=== PATIENT | male | born 1960 | race Caucasian/White ===

== ENCOUNTER → 2018-01-14 | Outpatient (CLI) | payer OTHER ==
[~2018-01-14] MED LIST: ALDACTONE 25MG25 MG PO; ASPIR-LOW81 MG PO; COZAAR 25MG25 MG/TAB PO; DOXAZOCIN; FLOMAX 0.40.4 MG/CAP PO; NORVASC10 MG PO; PERCOCET 325 MG1 TA2 PO
== END ==
LOC: COL.VAS 09:26
DX: I10 Essential (primary) hypertension (principal)

== ENCOUNTER → 2018-01-27 | Outpatient (CLI) | payer OTHER | LOC: COL.RAD 10:39 | DX: I97.3 Postprocedural hypertension (principal) | CPT/HCPCS: A9585; C8902 ==

== ENCOUNTER 2018-04-29 07:34 | Day surgery (SDC) | payer OTHER ==
[~2018-04-29] VITALS: Ht 177.8 cm; Wt 71.9 kg
[2018-04-29] MEDS ORDERED: NORVASC 5MG5 MG/TAB PO (07:50)
[2018-04-29] MEDS ORDERED: COZAAR100 MG PO (07:51)
[2018-04-29 07:52] VITALS: BP 138/97; PULSE 82; TEMP 97.4
[2018-04-29 09:25] VITALS: BP 140/96; PULSE 89; TEMP 97.7
[2018-04-29 09:40] VITALS: BP 146/102; PULSE 92
[2018-04-29 09:55] VITALS: BP 144/95; PULSE 98
[2018-04-29 10:10] VITALS: BP 142/105; PULSE 79
== END 2018-04-29 10:20 | disposition home or self-care (01) ==
LOC: SDCO 07:34
DX: Z12.11 Encounter for screening for malignant neoplasm of colon (principal); D12.0 Benign neoplasm of cecum; D12.4 Benign neoplasm of descending colon; K64.0 First degree hemorrhoids; I10 Essential (primary) hypertension; N40.0 Benign prostatic hyperplasia without lower urinary tract symptoms; Z87.442 Personal history of urinary calculi; Z79.82 Long term (current) use of aspirin; Z79.899 Other long term (current) drug therapy; K57.30 Diverticulosis of large intestine without perforation or abscess without bleeding
CPT/HCPCS: J2250; J3010; J7030

== ENCOUNTER 2020-11-08 15:14 | Emergency (ER) | payer OTHER ==
[~2020-11-08] VITALS: Ht 177.8 cm; Wt 75.0 kg
[~2020-11-08 15:14] MED LIST changes: +COZAAR100 MG PO; +NORVASC 5MG5 MG/TAB PO
[2020-11-08 15:21] VITALS: TEMP 97.6
[2020-11-08 15:55] LABS: BASO # 0.1 (0.0-0.2); BASO % 0.8 % (0.0-2.0); EOS # 0.2 (0.0-0.7); EOS % 2.6 % (0-4.0); GRAN # 4.4 (1.4-6.5); GRAN % 66.5 % (42.2-75.2); HEMATOCRIT 43.2 % (42.0-52.0); HEMOGLOBIN 14.7 g/dl (13.5-18.0); LYMPH # 1.3 (1.2-3.4); LYMPH % 20.2 % (20.0-51.0); MEAN CELL VOLUME 85 fl (80.0-100.0); MEAN CORPUSCULAR HEMOGLOBIN 29 pg (27.0-31.0); MEAN CORPUSCULAR HGB CONC 34 g/dl (33.0-37.0); MEAN PLATELET VOLUME 10.2 fl (7.4-10.4); MONO # 0.6 (0.1-0.6); MONO % 9.4 % (1.7-9.3); PLATELET COUNT 200 K/mm3 (130-400); RED BLOOD COUNT 5.11 M/mm3 (4.20-5.60); REDCELL DISTRIBUTION WIDTH-CV 13.2 % (11.5-14.5)
[2020-11-08 16:07] LABS: ALBUMIN 3.9 gm/dL (3.5-5.0); BILIRUBIN,TOTAL 0.5 mg/dL (0.0-1.0); CREATININE, serum 1.09 (0.66-1.25); POTASSIUM 3.9 mmol/L (3.4-5.0); TOTAL PROTEIN 6.9 gm/dL (6.4-8.2)
[2020-11-08 16:18] LABS: TROPONIN-I 0.025 ng/mL (0.000-0.035)
[2020-11-08] MEDS ORDERED: PLAVIX 75MG TAB75 MG PO (19:20)
[2020-11-08] MEDS ORDERED: HCTZ12.5TAB PO (19:20)
[2020-11-08 19:26] VITALS: BP 161/97; PULSE 55
[2021-02-10] MEDS ORDERED: ELIQUIS 5MG PO (19:06)
[2021-02-10] MEDS ORDERED: TYLENOL 325MG325 MG PO (19:07)
[2021-02-10] MEDS ORDERED: ZYRTEC 10MG10 MG PO (19:08)
[2021-02-10] MEDS ORDERED: CARDIZEM120 MG PO (19:08)
[2021-02-10] MEDS ORDERED: LOPRESSOR 225 MG/TAB PO (19:09)
[2021-02-10] MEDS ORDERED: SENNA-LAX8.6 MG PO (19:10)
[2021-02-10] MEDS ORDERED: PERCOCET 325 MG1 TA2 PO (19:10)
[2021-02-10] MEDS ORDERED: ZINC SULFATE 1566 MG PO (19:11)
[2021-05-01] MEDS ORDERED: COUMADIN 1MG1 MG/TAB PO (13:55)
[2021-05-01] MEDS ORDERED: LIPITOR 80MG80 MG PO (13:56)
[2021-05-01] MEDS ORDERED: ASPIRIN E.C. 8181 MG PO (13:58)
== END 2020-11-08 19:37 | disposition home or self-care (01) ==
LOC: COL.ER 15:14
PROVIDERS: Nurse Practitioner Primary Care
DX: G45.9 Transient cerebral ischemic attack, unspecified (principal); I10 Essential (primary) hypertension; N40.0 Benign prostatic hyperplasia without lower urinary tract symptoms; Z79.899 Other long term (current) drug therapy; Z79.82 Long term (current) use of aspirin
CPT/HCPCS: Q9967

== ENCOUNTER → 2020-12-02 | Outpatient (CLI) | payer OTHER ==
[~2020-12-02] MED LIST changes: +ASPIRIN E.C. 8181 MG PO; +CARDIZEM120 MG PO; +COUMADIN 1MG1 MG/TAB PO; +ELIQUIS 5MG PO; +HCTZ12.5TAB PO; +LIPITOR 80MG80 MG PO; +LOPRESSOR 225 MG/TAB PO; +MICARDIS40 MG PO; +NITRO-DUR0.4 MG/PAT TD; +PLAVIX 75MG TAB75 MG PO; +SENNA-LAX8.6 MG PO; +TYLENOL 325MG325 MG PO; +VERELAN360 MG PO; +ZEBETA10 MG PO; +ZINC SULFATE 1566 MG PO; +ZYRTEC 10MG10 MG PO
== END ==
LOC: COL.RAD 08:40
DX: G45.9 Transient cerebral ischemic attack, unspecified (principal)
CPT/HCPCS: A9585

== ENCOUNTER 2021-01-16 09:47 | Day surgery (SDC) | payer OTHER ==
[~2021-01-16] VITALS: Ht 177.8 cm; Wt 70.5 kg
[2021-01-16] VITALS (11 sets, daily range): BP systolic 133–151; BP diastolic 78–90; PULSE 45–62; TEMP 98
[~2021-01-16 09:47] MED LIST changes: -ASPIRIN E.C. 8181 MG PO; -CARDIZEM120 MG PO; -COUMADIN 1MG1 MG/TAB PO; -ELIQUIS 5MG PO; -LIPITOR 80MG80 MG PO; -LOPRESSOR 225 MG/TAB PO; -MICARDIS40 MG PO; -NITRO-DUR0.4 MG/PAT TD; -SENNA-LAX8.6 MG PO; -TYLENOL 325MG325 MG PO; -VERELAN360 MG PO; -ZEBETA10 MG PO; -ZINC SULFATE 1566 MG PO; -ZYRTEC 10MG10 MG PO
[2021-01-16] MEDS ORDERED: ASPIRIN E.C. 8181 MG PO (10:22)
[2021-01-16] MEDS ORDERED: ZEBETA10 MG PO (10:24)
[2021-01-16] MEDS ORDERED: FLOMAX 0.40.4 MG/CAP PO (10:32)
[2021-01-16] MEDS ORDERED: VERELAN360 MG PO (10:33)
[2021-01-16] MEDS ORDERED: MICARDIS40 MG PO (10:33)
[2021-01-16] MEDS ORDERED: PLAVIX 75MG TAB75 MG PO (10:34)
[2021-01-16 10:46] LABS: HEMATOCRIT 42.9 % (42.0-52.0); HEMOGLOBIN 14.3 g/dl (13.5-18.0); MEAN CELL VOLUME 87 fl (80.0-100.0); MEAN CORPUSCULAR HEMOGLOBIN 29 pg (27.0-31.0); MEAN CORPUSCULAR HGB CONC 33 g/dl (33.0-37.0); MEAN PLATELET VOLUME 9.5 fl (7.4-10.4); PLATELET COUNT 221 K/mm3 (130-400); RED BLOOD COUNT 4.92 M/mm3 (4.20-5.60); REDCELL DISTRIBUTION WIDTH-CV 12.8 % (11.5-14.5)
[2021-01-16 10:54] LABS: INR 1.1 (0.8-3.0); PROTHROMBIN TIME 11.8 SECONDS (9.7-12.8)
[2021-01-16 10:56] LABS: PARTIAL THROMBOPLASTIN TIME 31.6 SECONDS (26.0-37.0)
[2021-01-16 11:00] LABS: CALCIUM 9.2 mg/dL (8.4-10.2); CREATININE, serum 1.21 (0.66-1.25); POTASSIUM 4.6 mmol/L (3.4-5.0)
--- NOTE | 2021-01-16 12:45 | NUR ---
Report from Danna LIU. Transferred from [facility] by bed. Dr. Moran in to talk to pt about need to ship him to [place] from [facility] surgery. Right Tband with 16 cc air CD&I, good pulses and cap refill < 3 secs.
--- NOTE | 2021-01-16 15:56 | NUR ---
16 CC air released from right Tband and dressing applied. INT discontinued intact. Ambulates to bathroom with steady gait and denies pain
[2021-01-16] MEDS ORDERED: LIPITOR 80MG80 MG PO (16:04)
[2021-01-16] MEDS ORDERED: NITRO-DUR0.4 MG/PAT TD (16:04)
--- NOTE | 2021-01-16 16:20 | NUR ---
DC instructions reviewed with pt and . Both express understanding. Pt assisted out by wheelchair to 's car. INT was previously DC'd by NOE Gurrola. Rt radial puncture site dressed with bandaid and coban wrap, also placed by NOE Gurrola.
[2021-02-10] MEDS ORDERED: ELIQUIS 5MG PO (19:06)
[2021-02-10] MEDS ORDERED: TYLENOL 325MG325 MG PO (19:07)
[2021-02-10] MEDS ORDERED: CARDIZEM120 MG PO (19:08)
[2021-02-10] MEDS ORDERED: ZYRTEC 10MG10 MG PO (19:08)
[2021-02-10] MEDS ORDERED: LOPRESSOR 225 MG/TAB PO (19:09)
[2021-02-10] MEDS ORDERED: SENNA-LAX8.6 MG PO (19:10)
[2021-02-10] MEDS ORDERED: PERCOCET 325 MG1 TA2 PO (19:10)
[2021-02-10] MEDS ORDERED: ZINC SULFATE 1566 MG PO (19:11)
[2021-05-01] MEDS ORDERED: COUMADIN 1MG1 MG/TAB PO (13:55)
[2021-05-01] MEDS ORDERED: LIPITOR 80MG80 MG PO (13:56)
[2021-05-01] MEDS ORDERED: ASPIRIN E.C. 8181 MG PO (13:58)
== END 2021-01-16 16:20 ==
LOC: COL.CAR 09:47
PROVIDERS: Internal Medicine Cardiovascular Disease
DX: I25.110 Atherosclerotic heart disease of native coronary artery with unstable angina pectoris (principal); I25.82 Chronic total occlusion of coronary artery; I10 Essential (primary) hypertension; Z20.822 Contact with and (suspected) exposure to COVID-19; Z86.73 Personal history of transient ischemic attack (TIA), and cerebral infarction without residual deficits; Z79.82 Long term (current) use of aspirin; Z79.02 Long term (current) use of antithrombotics/antiplatelets; Z79.899 Other long term (current) drug therapy; Z82.3 Family history of stroke
CPT/HCPCS: C1769; J1200; J1644; J2250; J2930; J3010; Q9967

== ENCOUNTER 2021-04-12 16:13 | Outpatient (RCR) | payer OTHER ==
[~2021-04-12 16:13] MED LIST changes: +ASPIRIN E.C. 8181 MG PO; +CARDIZEM120 MG PO; +ELIQUIS 5MG PO; +LIPITOR 80MG80 MG PO; +LOPRESSOR 225 MG/TAB PO; +MICARDIS40 MG PO; +NITRO-DUR0.4 MG/PAT TD; +SENNA-LAX8.6 MG PO; +TYLENOL 325MG325 MG PO; +VERELAN360 MG PO; +ZEBETA10 MG PO; +ZINC SULFATE 1566 MG PO; +ZYRTEC 10MG10 MG PO
[2021-05-01] MEDS ORDERED: COUMADIN 1MG1 MG/TAB PO (13:55)
[2021-05-01] MEDS ORDERED: LIPITOR 80MG80 MG PO (13:56)
[2021-05-01] MEDS ORDERED: ASPIRIN E.C. 8181 MG PO (13:58)
== END 2021-04-19 15:37 | disposition home or self-care (01) ==
LOC: COL.CR 16:13
DX: Z48.812 Encounter for surgical aftercare following surgery on the circulatory system (principal); Z95.1 Presence of aortocoronary bypass graft

== ENCOUNTER → 2021-05-05 | Outpatient (CLI) | payer OTHER ==
[~2021-05-05] MED LIST changes: +COUMADIN 1MG1 MG/TAB PO
[2021-05-05 10:10] VITALS: BP 157/90; PULSE 64; TEMP 98
[2021-05-05 10:43] LABS: INR 1.5 (0.8-3.0); PROTHROMBIN TIME 16.4 SECONDS (9.7-12.8)
--- NOTE | 2021-05-05 10:59 | NUR ---
Per Dr Gifford the PT/INR is too high to proceed with test. Procedure cancelled. Assisted with getting pt another appointment.
== END ==
LOC: COL.RAD 09:24
PROVIDERS: Radiology Diagnostic Radiology
DX: M54.50 Low back pain, unspecified (principal)

== ENCOUNTER 2021-05-16 08:54 | Outpatient (CLI) | payer OTHER ==
[2021-05-16] VITALS (7 sets, daily range): BP systolic 149–167; BP diastolic 83–92; PULSE 59–71; TEMP 98
[~2021-05-16] VITALS: Ht 177.8 cm; Wt 70.2 kg
[2021-05-16 09:37] LABS: INR 1.1 (0.8-3.0); PROTHROMBIN TIME 11.8 SECONDS (9.7-12.8)
--- NOTE | 2021-05-16 12:20 | NUR ---
Pt steady on feet in room. DC instructions reviewed with pt and , both express understanding. He is assisted out to 's car by wheelchair.
== END 2021-05-16 12:20 | disposition home or self-care (01) ==
LOC: COL.RAD 08:54
PROVIDERS: Orthopaedic Surgery Sports Medicine
DX: M48.061 Spinal stenosis, lumbar region without neurogenic claudication (principal); M48.07 Spinal stenosis, lumbosacral region
CPT/HCPCS: Q9965

== ENCOUNTER 2023-07-02 09:04 | Day surgery (SDC) | payer OTHER ==
[~2023-07-02] VITALS: Ht 177.8 cm; Wt 76.0 kg
[~2023-07-02 09:04] MED LIST changes: +ALDACTONE 25MG25 M1 PO; +BRILINTA90 MG PO; +CARDIZEM CD 12120 MG PO; -CARDIZEM120 MG PO; +FLEXERIL 1010 MG/TAB PO; -LOPRESSOR 225 MG/TAB PO; +LR 1,000 ML IV SCH; +MOBIC15 MG PO; +Ondansetron 4 MG/2 ML VIAL IV PRN; +PROTONIX 40MG T40 MG PO; +TOPROL XL100 MG PO; +TOPROL XL200 MG PO
[2023-07-02] MEDS ORDERED: ZYLOPRIM 300MG300 MG PO (10:33)
[2023-07-02] MEDS ORDERED: ZYRTEC5 MG PO (10:33)
[2023-07-02] MEDS ORDERED: AMOXICILLIN 50500 MG PO (10:36)
[2023-07-02 10:41] VITALS: BP 150/88; PULSE 84; TEMP 98.2
[2023-07-02 10:52] VITALS: BP 128/92; PULSE 65; TEMP 97.3
[2023-07-02 11:07] VITALS: BP 129/88; PULSE 59
[2023-07-02 11:22] VITALS: BP 138/85; PULSE 59
--- NOTE | 2023-07-02 12:39 | NUR ---
1052 PATIENT RETURNED TO BAY 6 POST PROCEDURE. RECEIVED REPORT FROM NOE CALIXTO. PT IS ALERT AND ORIENTED, BREATHING EVEN AND UNLABORED, ABLE TO ANBULATE FROM THE CART TO THE STRETCHER. DR. RODRIGUES IN TO UPDATE PT AND HIS ON THE REULTS AND PLAN. 1055 PT GIVEN ORGANGE JUICE AND A MUFFIN FOR A PO CHALLENGE. PT TOLERATED WELL. 1119 rEVIEWED PRINTED PHYSICIAN DISCHARGE INSTRUCTIONS AND PATIENT EDUCATION MATERIALS WITH PT AND HIS . INVITED AND ANSWERED QUESTIONS. 1130 PT TO LOBBY VIA WHEEL CHAIR FOR A RIDE HOME WITH HIS IN POV.
== END 2023-07-02 12:43 | disposition home or self-care (01) ==
LOC: SDCO 09:04
DX: Z12.11 Encounter for screening for malignant neoplasm of colon (principal); D12.4 Benign neoplasm of descending colon; K64.8 Other hemorrhoids; K57.30 Diverticulosis of large intestine without perforation or abscess without bleeding; K63.5 Polyp of colon; K21.9 Gastro-esophageal reflux disease without esophagitis
CPT/HCPCS: J2704; J7120

== ENCOUNTER 2023-12-31 11:13 | Day surgery (SDC) | payer OTHER ==
[2023-12-31] VITALS (12 sets, daily range): BP systolic 126–155; BP diastolic 78–89; PULSE 56–75; TEMP 98.6
[~2023-12-31] VITALS: Ht 177.8 cm; Wt 74.0 kg
[~2023-12-31 11:13] MED LIST changes: +AMOXICILLIN 50500 MG PO; +COZAAR 50MG50 MG/TAB PO; -LR 1,000 ML IV SCH; -Ondansetron 4 MG/2 ML VIAL IV PRN; +ZYLOPRIM 300MG300 MG PO; +ZYRTEC5 MG PO
[2023-12-31] MEDS ORDERED: 1/2 NS 1,000 ML IV SCH (11:45)
[2023-12-31 12:01] LABS: HEMATOCRIT 44.2 % (42.0-52.0); HEMOGLOBIN 14.9 g/dl (13.5-18.0); MEAN CELL VOLUME 86 fl (80.0-100.0); MEAN CORPUSCULAR HEMOGLOBIN 29 pg (27-31); MEAN CORPUSCULAR HGB CONC 34 g/dl (33.0-37.0); MEAN PLATELET VOLUME 9.8 fl (7.4-10.4); PLATELET COUNT 172 K/mm3 (130-400); RED BLOOD COUNT 5.12 M/mm3 (4.20-5.60); REDCELL DISTRIBUTION WIDTH-CV 13.8 % (11.5-14.5)
[2023-12-31 12:09] LABS: INR 1.1 (0.8-3.0); PROTHROMBIN TIME 11.7 SECONDS (9.7-12.8)
[2023-12-31 12:18] LABS: CALCIUM 9.4 mg/dL (8.4-10.2); CREATININE, serum 1.36 mg/dL (0.72-1.25); POTASSIUM 4.2 mEq/L (3.5-4.5)
[2023-12-31] MEDS ORDERED: XYZAL5 MG PO (12:31)
[2023-12-31] MEDS ORDERED: TOPROL XL100 MG PO (12:31)
--- NOTE | 2023-12-31 13:42 | NUR ---
Please see merge documentation for record of interventions, vitals and medications administered during left heart cath with Dr. Moran
[2023-12-31] MEDS ORDERED: NS 500 ML IV.SOLN. IR SCH (13:44)
[2023-12-31] MEDS ORDERED: fentaNYL 50 MCG/ML 2 ML VIAL IV SCH (14:09)
[2023-12-31] MEDS ORDERED: Midazolam 2 MG/2 ML VIAL IV SCH (14:09)
[2023-12-31] MEDS ORDERED: Iohexol 350 - 100 ML VIAL INCOR ONE (14:17)
--- NOTE | 2023-12-31 18:31 | NUR ---
PT TOLERATED RECOVERY PERIOD WELL. VS REMAINED WITHIN NORMAL LIMITS. IV DISCONTINUED. PT ASSISTED TO ER EXIT VIA WHEELCHAIR. PT VERBALIZED UNDERSTANDING OF DISCHARGE INSTRUCTIONS. PT'S RIGHT GROIN DRESSING REMAINED CLEAN DRY AND INTACT. PT REMAINED FREE FROM SIGNS OF BLEEDING AND HEMATOMS. PT REPORTED 0/10 PAIN.
== END 2023-12-31 18:34 | disposition home or self-care (01) ==
LOC: COL.CAR 11:13
PROVIDERS: Internal Medicine Cardiovascular Disease
DX: I25.10 Atherosclerotic heart disease of native coronary artery without angina pectoris (principal); I25.82 Chronic total occlusion of coronary artery; Z95.5 Presence of coronary angioplasty implant and graft; Z95.828 Presence of other vascular implants and grafts
CPT/HCPCS: C1760; C1894; J2250; J3010; J7040; Q9967

== ENCOUNTER → 2024-03-30 | Outpatient (CLI) | payer OTHER ==
[~2024-03-30] MED LIST changes: +Albuterol 0.083% Neb Soln 2.5 MG/3 ML UD IH ONE; +Methacholine Vial A (Clear Label Base-Cntrl) IH ONE; +Methacholine Vial B (Red Label) 0.0625 MG/ML 3 ML VIAL.NEB IH ONE; +Methacholine Vial C (Orange Label) 0.25 MG/ML 3 ML VIAL.NEB IH ONE; +Methacholine Vial D (Yellow Label) 1 MG/ML 3 ML VIAL.NEB IH ONE; +Methacholine Vial E (Green Label) 4 MG/ML 3 ML VIAL.NEB IH ONE; +Methacholine Vial F (Blue Label) 16 MG/ML 3 ML VIAL.NEB IH ONE; +XYZAL5 MG PO
== END ==
LOC: COL.CARD 12:14
DX: R06.02 Shortness of breath (principal)
CPT/HCPCS: J7674